=== PATIENT | female | born 1975 | race Caucasian/White ===

== ENCOUNTER 2024-01-13 10:48 | Outpatient (CLI) | payer BC | END 2024-01-13 10:49 | disposition home or self-care (01) | LOC: BICULT 10:48 | PROVIDERS: ATTEND Student in an Organized Health Care Education/Training Program | DX: R92.8 Other abnormal and inconclusive findings on diagnostic imaging of breast (principal); N63.11 Unspecified lump in the right breast, upper outer quadrant; C50.919 Malignant neoplasm of unspecified site of unspecified female breast | CPT/HCPCS: 19083; 88305 ==